=== PATIENT | female | born 1985 | race Caucasian/White ===

== ENCOUNTER 2018-02-13 14:44 | Emergency (ER) | payer OTHER ==
[2018-02-13] MEDS: ACETAMINOPHEN 325 MG TAB PO (16:10)
[2018-02-13 16:22] LABS: ADD MAN DIFF? NO
[2018-02-13 16:23] LABS: BASOPHILS % 0.2 % (0.0-2.0); EOSINOPHILS # 0.1 10^3/ul (0.0-0.5); EOSINOPHILS % 0.6 % (0.0-7.0); HEMATOCRIT 37.6 % (37.0-47.0); HEMOGLOBIN 12.7 g/dl (12.0-16.0); LYMPHOCYTES # 1.6 10^3/ul (0.8-2.9); LYMPHOCYTES % 19.3 % (15.0-51.0); MEAN CORPUSCULAR HEMOGLOBIN 30.1 pg (29.0-33.0); MEAN CORPUSCULAR HGB CONC 33.8 g/dl (32.0-37.0); MEAN CORPUSCULAR VOLUME 89.1 fl (82.0-101.0); MEAN PLATELET VOLUME 9.5 fl (7.4-10.4); MONOCYTE # 0.6 10^3/ul (0.3-0.9); MONOCYTES % 6.9 % (0.0-11.0); NEUTROPHIL # 5.9 10^3/ul (1.6-7.5); NEUTROPHILS % 72.6 % (39.0-77.0); PLATELET COUNT 265 10^3/UL (140-415); RED BLOOD COUNT 4.22 10^6/ul (4.20-5.40); RED CELL DISTRIBUTION WIDTH 13.1 % (11.5-14.5)
[2018-02-13 16:23] LABS: WHITE BLOOD COUNT 8.2 10^3/ul (4.8-10.8)
[2018-02-13 16:43] LABS: ALANINE AMINOTRANSFERASE 34 IU/L (13-69); ALBUMIN 3.5 g/dl (3.3-4.9); ALBUMIN/GLOBULIN RATIO 1.25; ALKALINE PHOSPHATASE 60 IU/L (42-121); ANION GAP 11 (5-13); ASPARTATE AMINO TRANSFERASE 18 IU/L (15-46); BLOOD UREA NITROGEN 5 mg/dl (7-20); CARBON DIOXIDE 22 mmol/L (21-31); CHLORIDE 108 mmol/L (97-110); CREATININE 0.39 mg/dl (0.44-1.00); Estimated GFR > 60 mL/min (>60); GLUCOSE 99 mg/dl (70-220); POTASSIUM 3.5 mmol/L (3.5-5.1); SODIUM 141 mmol/L (135-144); TOTAL PROTEIN 6.3 g/dl (6.1-8.1)
[2018-02-13 17:52] LABS: ADD UMIC YES; UR ASCORBIC ACID NEGATIVE (NEGATIVE); UR BILIRUBIN (Dip) NEGATIVE (NEGATIVE); UR BLOOD (Dip) NEGATIVE (NEGATIVE); UR CLARITY CLEAR (CLEAR); UR COLOR YELLOW (YELLOW); UR GLUCOSE (Dip) NEGATIVE (NEGATIVE); UR KETONES (Dip) NEGATIVE (NEGATIVE); UR LEUKOCYTE ESTERASE (Dip) TRACE Leu/ul (NEGATIVE); UR MUCUS FEW /HPF (NONE SEEN); UR NITRITE (Dip) NEGATIVE (NEGATIVE); UR RBC 2 /HPF (0-5); UR SPECIFIC GRAVITY (Dip) 1.027 (1.003-1.030); UR SQUAMOUS EPITHELIAL CELL FEW /HPF (FEW); UR TOTAL PROTEIN (Dip) 1+ mg/dl (NEGATIVE); UR UROBILINOGEN (Dip) NEGATIVE (NEGATIVE); UR WBC 2 /HPF (0-5)
== END 2018-02-13 19:21 | disposition home or self-care (01) ==
LOC: FTE 14:44
DX: O26.892 Other specified pregnancy related conditions, second trimester (principal); R10.9 Unspecified abdominal pain; O99.512 Diseases of the respiratory system complicating pregnancy, second trimester; J45.909 Unspecified asthma, uncomplicated; R10.2 Pelvic and perineal pain; Z3A.15 15 weeks gestation of pregnancy
CPT/HCPCS: 36415; 76805; 80053; 81001; 84702; 85025; 86900; 86901; 87086; 99284-25

== ENCOUNTER 2018-05-18 21:51 | Emergency (ER) | payer OTHER ==
[2018-05-18] MEDS: ALBUTEROL 0.5% (NEB) 2.5 MG/0.5 ML AMP NEB (22:45)
[2018-05-18] MEDS: ACETAMINOPHEN 500 MG TAB PO (23:33)
[2018-05-18] MEDS: PHENYLephrine 1% 15 ML NAS SPRAY NASAL (23:38)
[2018-05-19 02:27] LABS: ABO/RH TYPE 1 1
== END 2018-05-19 03:00 | disposition home or self-care (01) ==
LOC: E/R 05-19 03:00
DX: O99.512 Diseases of the respiratory system complicating pregnancy, second trimester (principal); J45.901 Unspecified asthma with (acute) exacerbation; J01.90 Acute sinusitis, unspecified; R05 Cough; R07.89 Other chest pain; Z3A.28 28 weeks gestation of pregnancy
CPT/HCPCS: 86900; 86901; 87400; 93005; 94644; 99284-25

== ENCOUNTER 2018-07-09 09:00 | Outpatient (CLI) | payer OTHER ==
[2018-07-09 10:10] LABS: RUPTURE FETAL MEMBRANES POSITIVE (NEGATIVE)
[2018-07-09] MEDS ORDERED: LACTATED RINGER'S 1,000 ML IV (10:28)
[2018-07-09] MEDS ORDERED: OXYTOCIN 30 UNITS/LR 500 ML IV ×3 (10:30)
[2018-07-09] MEDS ORDERED: METHYLERGONOVINE 0.2 MG INJ IM (10:30)
[2018-07-09] MEDS ORDERED: IBUPROFEN 600 MG TAB PO (10:30)
[2018-07-09] MEDS ORDERED: BUTORPHANOL 2 MG INJ IV (10:30)
[2018-07-09] MEDS ORDERED: LIDOCAINE 1% (MPF) 30 ML INJ INJ (10:30)
[2018-07-09] MEDS ORDERED: CARBOPROST 250 MCG INJ IM (10:30)
[2018-07-09] MEDS ORDERED: MISOPROSTOL 200 MCG TAB PR (10:30)
[2018-07-09] MEDS ORDERED: BETAMET NA PHOS/AC(6 MG/ML) 2 ML INJ SYG IM (11:30)
== END 2018-07-09 10:55 | disposition left against medical advice (07) ==
LOC: OBT 09:00 → L-D 09:02 → OBT 10:24 → L-D 10:33 → OBT 10:55
DX: O41.93X0 Disorder of amniotic fluid and membranes, unspecified, third trimester, not applicable or unspecified (principal); Z3A.35 35 weeks gestation of pregnancy
CPT/HCPCS: 76815; 76818; 84112

== ENCOUNTER 2018-07-09 14:12 | Inpatient (IN) | payer OTHER ==
[2018-07-09] MEDS ORDERED: METHYLERGONOVINE 0.2 MG INJ IM (15:00)
[2018-07-09] MEDS ORDERED: CARBOPROST 250 MCG INJ IM (15:00)
[2018-07-09] MEDS ORDERED: OXYTOCIN 30 UNITS/LR 500 ML IV ×2 (15:00)
[2018-07-09] MEDS ORDERED: MISOPROSTOL 200 MCG TAB PR (15:00)
[2018-07-09] MEDS ORDERED: LIDOCAINE 1% (MPF) 30 ML INJ INJ (15:00)
[2018-07-09] MEDS ORDERED: IBUPROFEN 600 MG TAB PO (15:00)
[2018-07-09] MEDS ORDERED: BUTORPHANOL 2 MG INJ IV (15:00)
[2018-07-09 16:05] LABS: ADD MAN DIFF? NO
[2018-07-09 16:10] LABS: BASOPHILS % 0.4 % (0.0-2.0); EOSINOPHILS # 0.1 10^3/ul (0.0-0.5); EOSINOPHILS % 1.1 % (0.0-7.0); HEMATOCRIT 37.1 % (37.0-47.0); HEMOGLOBIN 12.1 g/dl (12.0-16.0); LYMPHOCYTES # 1.4 10^3/ul (0.8-2.9); LYMPHOCYTES % 14.8 % (15.0-51.0); MEAN CORPUSCULAR HEMOGLOBIN 27.9 pg (29.0-33.0); MEAN CORPUSCULAR HGB CONC 32.6 g/dl (32.0-37.0); MEAN CORPUSCULAR VOLUME 85.5 fl (82.0-101.0); MEAN PLATELET VOLUME 9.9 fl (7.4-10.4); MONOCYTE # 0.6 10^3/ul (0.3-0.9); MONOCYTES % 5.7 % (0.0-11.0); NEUTROPHIL # 7.5 10^3/ul (1.6-7.5); NEUTROPHILS % 77.2 % (39.0-77.0); PLATELET COUNT 271 10^3/UL (140-415); RED BLOOD COUNT 4.34 10^6/ul (4.20-5.40)
[2018-07-09 16:10] LABS: WHITE BLOOD COUNT 9.8 10^3/ul (4.8-10.8)
[2018-07-09 16:29] LABS: INR 0.89; PROTIME 12.2 Sec (11.9-14.9)
[2018-07-09 16:30] LABS: PARTIAL THROMBOPLASTIN TIME 29.2 Sec (23.0-35.0)
[2018-07-09] MEDS: LACTATED RINGER'S 1,000 ML IV (16:42)
[2018-07-09] MEDS: BETAMET NA PHOS/AC(6 MG/ML) 2 ML INJ SYG IM (17:06)
[2018-07-09 17:10] LABS: HEPATITIS B SURFACE ANTIGEN NEGATIVE (NEGATIVE)
[2018-07-09] MEDS ORDERED: AMPICILLIN 2 GM/NS (PMX) 100 ML (19:59)
[2018-07-09] MEDS: AMPICILLIN 2 GM/NS (PMX) 100 ML IV (20:21)
[2018-07-09] MEDS: AZITHROMYCIN 500MG/NS (PMX) 250 ML IVPB (21:11)
[2018-07-10] MEDS: AMPICILLIN 1 GM/NS (PMX) 50 ML IV ×6 (00:19→21:15)
[2018-07-10] MEDS: LACTATED RINGER'S 1,000 ML IV ×4 (00:48→22:09)
[2018-07-10] MEDS ORDERED: FENTAnyl 2MCG/ML-ROPIV 0.2% 100 ML (01:42)
[2018-07-10] MEDS ORDERED: NALOXONE (0.4 MG/ML) INJ IV (02:00)
[2018-07-10] MEDS ORDERED: DIPHENHYDRAMINE 50 MG INJ IV (02:00)
[2018-07-10] MEDS ORDERED: ONDANSETRON 4 MG INJ IV (02:00)
[2018-07-10] MEDS: FENTAnyl 2MCG/ML-ROPIV 0.2% 100 ML BAG EPI ×3 (02:44→17:33)
[2018-07-10] MEDS ORDERED: ALBUTEROL HFA 8 GM INHALER INH (03:00)
[2018-07-10] MEDS: BETAMET NA PHOS/AC(6 MG/ML) 2 ML INJ SYG IM (05:06)
[2018-07-10] MEDS: ACETAMINOPHEN 500 MG TAB PO (21:50)
[2018-07-10] MEDS: OXYTOCIN 30 UNITS/LR 500 ML IV (21:51)
[2018-07-10 22:03] LABS: RAPID PLASMA REAGIN NONREACTIVE (NR)
[2018-07-10] MEDS: AZITHROMYCIN 250 MG in SOD CHLORIDE 0.9% 250 ML IVPB (22:07)
[2018-07-11] MEDS: FENTAnyl 2MCG/ML-ROPIV 0.2% 100 ML BAG EPI (00:51)
[2018-07-11] MEDS: OXYTOCIN 30 UNITS/LR 500 ML IV (02:08)
[2018-07-11] MEDS: MINERAL OIL LIGHT 10 ML VIAL TOP (03:00)
[2018-07-11] MEDS ORDERED: CARBOPROST 250 MCG INJ IM (03:30)
[2018-07-11] MEDS ORDERED: OXYTOCIN 30 UNITS/LR 500 ML IV (03:30)
[2018-07-11] MEDS ORDERED: WITCH HAZEL/GLYCERIN PAD PR (03:30)
[2018-07-11] MEDS ORDERED: OXYCODONE/ASPIRIN (4.88/325) TAB PO ×2 (03:30)
[2018-07-11] MEDS ORDERED: ZOLPIDEM 5 MG TAB PO (03:30)
[2018-07-11] MEDS ORDERED: METHYLERGONOVINE 0.2 MG INJ IM (03:30)
[2018-07-11] MEDS ORDERED: MISOPROSTOL 200 MCG TAB PR (03:30)
[2018-07-11] MEDS ORDERED: BENZOCAINE 20% 56 ML SPRAY TOP (03:30)
[2018-07-11] MEDS: LANOLIN HPA 1 PKT TOP (05:33)
[2018-07-11] MEDS: IBUPROFEN 600 MG TAB PO ×4 (05:33→23:47)
[2018-07-11] MEDS: LACTATED RINGER'S 1,000 ML IV ×2 (06:52→14:30)
[2018-07-11] MEDS: SENNA/DOCUSATE NA (8.6MG/50MG) TAB PO ×2 (09:00→20:59)
[2018-07-11 22:15] LABS: RHOGAM PROFILE 1 1
[2018-07-12] MEDS: IBUPROFEN 600 MG TAB PO ×3 (05:57→17:10)
[2018-07-12] MEDS: SENNA/DOCUSATE NA (8.6MG/50MG) TAB PO ×2 (08:19→21:00)
[2018-07-12 08:42] LABS: ADD MAN DIFF? NO
[2018-07-12 08:52] LABS: BASOPHILS % 0.4 % (0.0-2.0); EOSINOPHILS # 0.1 10^3/ul (0.0-0.5); EOSINOPHILS % 1.1 % (0.0-7.0); HEMATOCRIT 35.3 % (37.0-47.0); HEMOGLOBIN 11.2 g/dl (12.0-16.0); LYMPHOCYTES # 2.3 10^3/ul (0.8-2.9); LYMPHOCYTES % 22.9 % (15.0-51.0); MEAN CORPUSCULAR HEMOGLOBIN 28.1 pg (29.0-33.0); MEAN CORPUSCULAR HGB CONC 31.7 g/dl (32.0-37.0); MEAN CORPUSCULAR VOLUME 88.5 fl (82.0-101.0); MEAN PLATELET VOLUME 10.1 fl (7.4-10.4); MONOCYTE # 0.7 10^3/ul (0.3-0.9); MONOCYTES % 7.3 % (0.0-11.0); NEUTROPHIL # 6.5 10^3/ul (1.6-7.5); NEUTROPHILS % 66.1 % (39.0-77.0); NUCLEATED RED BLOOD CELLS% 0.3 /100WBC (0.0-0.0); PLATELET COUNT 278 10^3/UL (140-415); RED BLOOD COUNT 3.99 10^6/ul (4.20-5.40); RED CELL DISTRIBUTION WIDTH 14.5 % (11.5-14.5)
[2018-07-12 08:52] LABS: WHITE BLOOD COUNT 9.9 10^3/ul (4.8-10.8)
[2018-07-13] MEDS: IBUPROFEN 600 MG TAB PO ×3 (00:10→12:00)
[2018-07-13] MEDS: SENNA/DOCUSATE NA (8.6MG/50MG) TAB PO (09:48)
[2018-07-13] MEDS: DIPHTH/TET/ACEL PERTUSS (ADULT) 0.5 ML VIAL IM* (09:49)
== END 2018-07-13 11:45 | disposition home or self-care (01) | DRG 807 ==
LOC: L-D 14:12 → PP1 07-11 03:11
PROVIDERS: Obstetrics & Gynecology; Pediatrics
PROC: 3E033VJ Introduction of Other Hormone into Peripheral Vein, Percutaneous Approach (ICD-10-PCS; 2018-07-10)
PROC: 10E0XZZ Delivery of Products of Conception, External Approach (ICD-10-PCS; principal; 2018-07-11)
DX: O42.913 Preterm premature rupture of membranes, unspecified as to length of time between rupture and onset of labor, third trimester (principal); Z37.0 Single live birth; Z3A.35 35 weeks gestation of pregnancy
CPT/HCPCS: 62322; 85025; 85610; 85730; 86592; 86850; 86870; 86885; 86900; 86901; 87340; 90715; 99464